=== PATIENT | female | born 1970 | race African-American/Black ===

== ENCOUNTER 2019-05-13 02:36 | Emergency (ER) | payer MEDICAID ==
[~2019-05-13] VITALS: Ht 152.4 cm; Wt 59.0 kg
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
--- NOTE | 2019-05-13 03:28 | NUR ---
PT TAKEN TO RADIOLOGY
--- NOTE | 2019-05-13 05:56 | NUR ---
Patient is resting comfortably in bed with eyes closed. Easily aroused. VSS
[2019-05-13 07:03] VITALS: BP 121/81
--- NOTE | 2019-05-13 08:09 | NUR ---
Patient discharged to home in stable condition. Written and verbal after care instructions given. Patient verbalizes understanding of instruction.
== END 2019-05-13 08:09 | disposition home or self-care (01) ==
LOC: ER 02:42
DX: S00.83XA Contusion of other part of head, initial encounter (principal); S50.11XA Contusion of right forearm, initial encounter; F10.129 Alcohol abuse with intoxication, unspecified; S60.222A Contusion of left hand, initial encounter; S60.221A Contusion of right hand, initial encounter; M32.9 Systemic lupus erythematosus, unspecified; Y04.0XXA Assault by unarmed brawl or fight, initial encounter; Y93.89 Activity, other specified; Y92.89 Other specified places as the place of occurrence of the external cause; Y99.8 Other external cause status; Y90.9 Presence of alcohol in blood, level not specified
CPT/HCPCS: 70486-TC; 73090-TC; 73120-TC